=== PATIENT | male | born 1960 | race Caucasian/White ===

== ENCOUNTER 2016-06-08 17:13 | Emergency (ER) | payer BC | END 2016-06-08 21:40 | disposition home or self-care (01) | LOC: D.ER 17:13 | DX: S39.012A Strain of muscle, fascia and tendon of lower back, initial encounter (principal); X58.XXXA Exposure to other specified factors, initial encounter; Y93.89 Activity, other specified; Y92.019 Unspecified place in single-family (private) house as the place of occurrence of the external cause; I25.10 Atherosclerotic heart disease of native coronary artery without angina pectoris; I10 Essential (primary) hypertension; K21.9 Gastro-esophageal reflux disease without esophagitis; E78.00 Pure hypercholesterolemia, unspecified ==

== ENCOUNTER 2019-05-01 21:25 | Inpatient (IN) | payer BC ==
[~2019-05-01] VITALS: Ht 177.8 cm; Wt 85.5 kg
[2019-05-01] MEDS ORDERED: OMEGA-3100 MG PO (21:36)
[2019-05-01] MEDS ORDERED: CRESTOR40 MG PO (21:36)
[2019-05-01] MEDS ORDERED: ALDACTONE25 MG PO (21:37)
[2019-05-01] MEDS ORDERED: LASIX20 MG PO (21:37)
[2019-05-01] MEDS ORDERED: MAGNESIUM OXID500 MG PO (21:37)
[2019-05-01] MEDS ORDERED: DILTIAZEM 24HR240 M4 PO (21:37)
[2019-05-01] MEDS ORDERED: ISOSORBIDE MONO60 M1 PO (21:38)
[2019-05-01] MEDS ORDERED: CO Q-10100 MG PO (21:38)
[2019-05-01] MEDS ORDERED: BAYER CHEWABLE81 MG PO (21:38)
[2019-05-01] MEDS ORDERED: VALIUM10 MG PO (21:39)
[2019-05-01] MEDS ORDERED: NITROQUICK0.4 MG SL (21:39)
[2019-05-01] MEDS ORDERED: ACETAMINOPHEN500 M1 PO (21:39)
[2019-05-01 21:54] LABS: BASOPHILS 0.1 % (0-2); EOSINOPHILS 0.2 % (0-7); IMMATURE GRANULOCYTES 0.2 % (0-5); MCH 28.1 pg (26.0-34.0); MCHC 34.1 g/dL (31.0-37.0); MCV 82.6 fL (80.0-100.0); MEAN PLATELET VOLUME 9.4 fL (7.4-10.4); MONOCYTES 6.3 % (2-11); NEUTROPHILS 86.2 % (40-80); PLATELET COUNT 151 10x3/uL (130-400); RBC 5.33 10x6/uL (4.20-6.10); RDW 16.8 % (11.5-14.5); WBC 12.9 10x3/uL (4.8-10.8)
[2019-05-01 22:00] VITALS: BP 124/75
--- NOTE | 2019-05-01 22:00 | NUR ---
PT REPORTS PAIN HAS MOVED TO LOWER ABD. PT DENIES CHEST OR EPIGASTRIC PAIN AT THIS TIME.
[2019-05-01 22:09] LABS: CALC OSMOLALITY 275 mosm/kg (275-300); CALCIUM 9.1 mg/dL (8.5-10.1); CHLORIDE - SERUM 104 mmol/L (98-107); CREATININE - SERUM 1.3 mg/dL (0.6-1.3); GLUCOSE 98 mg/dL (74-106); POTASSIUM - SERUM 3.7 mmol/L (3.5-5.1); SODIUM 138 mmol/L (136-145); UREA NITROGEN 13 mg/dL (7-18); eGFR NON AFRICAN AMERICAN 60 mL/min (90-120)
[2019-05-01 22:13] LABS: ALBUMIN 3.5 g/dL (3.4-5.0); ALKALINE PHOSPHATASE 77 U/L (46-116); ALT (SGPT) 30 U/L (10-68); AMYLASE - SERUM 59 U/L (25-115); BILIRUBIN - TOTAL 0.35 mg/dL (0.2-1.3); LIPASE 114 U/L (73-393); PROTEIN - SERUM 6.8 g/dL (6.4-8.2)
[2019-05-01 22:14] LABS: TROPONIN-I < 0.017 ng/mL (0.000-0.060)
--- NOTE | 2019-05-01 22:48 | NUR ---
PT RESTING ON BED. FAMILY AT BEDSIDE.
[2019-05-01 23:00] VITALS: BP 114/63
--- NOTE | 2019-05-01 23:28 | NUR ---
PT LEFT ED VIA WC FOR CT. PT AWAKE AND ALERT. NO S/S OF ACUTE DISTRESS NOTED.
[2019-05-02] VITALS (13 sets, daily range): BP systolic 99–137; BP diastolic 62–74; Ht 177.8 cm; Wt 85.5 kg
--- NOTE | 2019-05-02 00:45 | NUR ---
PT AWAKE AND ALERT. NO S/S OF ACUTE DISTRESS NOTED.
[2019-05-02 00:48] LABS: APPEARANCE CLOUDY (CLEAR); BILIRUBIN NEGATIVE (NEGATIVE); COLOR YELLOW (YELLOW); GLUCOSE NEGATIVE (NEGATIVE); KETONE NEGATIVE (NEGATIVE); NITRITE NEGATIVE (NEGATIVE); PROTEIN 1+ mg/dL (NEGATIVE); UROBILINOGEN NORMAL (NORMAL)
[2019-05-02 00:50] LABS: AMORPHOUS SEDIMENT >1+ /lpf (NONE SEEN); BACTERIA FEW /hpf (NEGATIVE); EPITHELIAL CELLS 0-5 /hpf (0-5); RED CELLS - URINE 0-5 /hpf (0-5); WHITE CELLS - URINE 0-5 /hpf (NEGATIVE)
--- NOTE | 2019-05-02 01:30 | NUR ---
PT RESTING COMFORTABLY AT THIS TIME.
[2019-05-02] MEDS ORDERED: VALIUM10 MG PO (02:29)
--- NOTE | 2019-05-02 03:02 | NUR ---
RCVD VIA WHEEL CHAIR WITH HOSPITAL STAFF AT SIDE. ALERT AND ORIENTED TIMES 4. ABLE TO VOICE ALL NEEDS. SLIGHT DISCOMFORT TO LRQ AT REST AND PALPATION. NO S/S OF ANY ACUTE DISTRESS. VSS. IV TO LEFT AC IS INFUSING VIA PUMP PER ORDERS. SKIN IS WDI. OLD SURGICAL SCARS TO LLQ LRQ MIDCHEST. DRESSING TO INNER RIGHT WRIST FROM HEART CATH ON 04/30/19 AT [facility]. WILL NOTE ANY CHANGE.
--- NOTE | 2019-05-02 09:18 | NUR ---
PT RESTING IN BED RESP EVEN AND UNLABORED. REPORTS PAIN 6/10 AT THIS TIME. EDUCATED PT REGARDING NEXT DOSE DUE FOR PAIN MEDICATION. PT VOICES UNDERSTANDING. PT NPO FOR UPCOMING SURGERY. IV TO LEFT AC WITH NS @ 100ML/HR INFUSING VIA PUMP. SITE WITHOUT REDNESS OR EDEMA. DENIES FURTHER NEEDS AT THIS TIME. CL WITHIN REACH. ENCOURAGED TO CALL WITH NEEDS. CONTINUE POC
[2019-05-03] VITALS: BP 126/71
[2019-05-03 04:00] VITALS: BP 99/64
[2019-05-03 04:54] LABS: BASOPHILS 0.1 % (0-2); EOSINOPHILS 0.1 % (0-7); HEMATOCRIT 46.1 % (42.0-54.0); HEMOGLOBIN 15.4 g/dL (13.5-17.5); IMMATURE GRANULOCYTES 0.3 % (0-5); LYMPHOCYTES 10.4 % (15-50); MCH 27.6 pg (26.0-34.0); MCHC 33.4 g/dL (31.0-37.0); MCV 82.8 fL (80.0-100.0); MEAN PLATELET VOLUME 10.1 fL (7.4-10.4); MONOCYTES 8.6 % (2-11); NEUTROPHILS 80.5 % (40-80); PLATELET COUNT 121 10x3/uL (130-400); RBC 5.57 10x6/uL (4.20-6.10); RDW 16.6 % (11.5-14.5); WBC 11.7 10x3/uL (4.8-10.8)
[2019-05-03 05:17] LABS: CALC OSMOLALITY 269 mosm/kg (275-300); CALCIUM 9.1 mg/dL (8.5-10.1); CARBON DIOXIDE 21.5 mmol/L (21.0-32.0); CHLORIDE - SERUM 104 mmol/L (98-107); GLUCOSE 81 mg/dL (74-106); POTASSIUM - SERUM 3.8 mmol/L (3.5-5.1); SODIUM 136 mmol/L (136-145); UREA NITROGEN 10 mg/dL (7-18); eGFR NON AFRICAN AMERICAN 82 mL/min (90-120)
--- NOTE | 2019-05-03 07:55 | NUR ---
I have reviewed this patient and I concur with the Shift Assessment completed by the Licensed Practical Nurse today this shift.
[2019-05-03] MEDS ORDERED: HYDROCODON-ACE1 EA10 PO (09:31)
[2019-05-03] MEDS ORDERED: VIBRAMYCIN50 MG PO (09:32)
--- NOTE | 2019-05-03 09:33 | OP ---
PATIENT NAME: KEYA AUSTIN MEDICAL RECORD: [id number] :62 LOCATION:D.[facility] [id number] ADMISSION DATE:05/02/19 SURGEON: JASWINDER SIMENTAL MD DATE OF OPERATION: 05/02/2019 PREOPERATIVE DIAGNOSES: 1. Acute appendicitis with localized peritonitis. 2. Coronary artery disease. POSTOPERATIVE DIAGNOSES: 1. Acute appendicitis with localized peritonitis. 2. Coronary artery disease. PROCEDURE: Laparoscopic appendectomy. SURGEON: Jaswinder Simental MD REPORT OF PROCEDURE: The patient's abdomen was prepped and draped in sterile fashion. A cutdown was made on the superior aspect of the umbilicus, 0 Vicryls were placed in the fascia bilaterally and the fascia was incised with a 15-blade. I then bluntly entered the peritoneal cavity and placed a 12-mm Enmanuel port. Under direct visualization, a 5-mm trocar was placed in the left lower quadrant and another was placed in the suprapubic region. In the right lower quadrant, we can see some inflammatory changes present. Using Harmonic scalpel, we took down some adhesions of the cecum to the anterior abdominal wall. Once we did this, we could see the appendix and could see that there was some murky appearing fluid and the appendix was significantly inflamed and appeared to have a small perforation. Upon grasping it, there was spillage of some contents out of the appendix and this was suctioned up quickly. The distal ileum was adherent to the side wall of the patient's right pelvis. We took down some of these adhesions to allow mobilization of this, we could better see the appendix. We eventually were able to dissect out the mesoappendix and this was transected with Harmonic scalpel. The base of the appendix was then cleared off near the cecum and we transected this using a 45 blue load Endo-TOMMIE stapler. The appendix was placed into an EndoCatch bag. We irrigated out the right lower quadrant and pelvis for quite a while until we had a good clear return of fluid. At this point, the ports and insufflation were then removed. The appendix was taken out through the umbilicus. The umbilical fascia was closed with interrupted 0 Vicryls times 3. The wounds were then irrigated out with normal saline and infused with 10 mL of 0.25% Marcaine with epinephrine. The skin incisions were all closed with subcutaneous 5-0 Monocryl and dressed appropriately. COMPLICATIONS: None. CONDITION: Stable. ANESTHESIA: General endotracheal and local. BLOOD LOSS: Minimal. TRANSINT:[id number] Voice Confirmation ID: [id number] DOCUMENT ID: [id number] OPERATIVE REPORT [id number] KEYA AUSTIN CHRISTIAN MD at 0933 CC: [id number] DICTATION DATE: 05/02/19 1127 KEYMODULE ASSEMBLY SUPERVISOR: 05/02/19 1322 ADM IN [place] [address] [place] [address]
--- NOTE | 2019-05-03 11:16 | NUR ---
PT IV D/C'D FROM LEFT AC, CATH INTACT. DISCHARGE INSTRUCTIONS PROVIDED WITH PRESCRIPTIONS. PT TAKEN OUT VIA W/C TO PRIVATE VEHICLE.
--- NOTE | 2019-05-04 13:33 | MORECARE ---
CASE MANAGEMENT DISCHARGE SUMMARY PATIENT: KEYA AUSTIN MOLLY UNIT: [id number] ADM DATE: 05/02/19 AGE: 58 : 62 SEX: M ROOM/BED: D.2233 AUTHOR: NOLAN HERNANDEZ PHYSICIAN: REFERRING PHYSICIAN: AGUSTO SIMENTAL MD DATE OF SERVICE: 05/04/19 Discharge Plan Patient Name: KEYA AUSTIN [facility] [facility] 1960 Planned Disposition: Anticipated Discharge Date: Discharge Date: 05/03/2019 Expected LOS: 0 Initial Reviewer: [email or web address] Initial Review Date: 05/04/2019 Generated: 05/04/19 2:33 pm Patient Name: KEYA AUSTIN Page [id number] at 1333 All edits/amendments must be made on the electronic document DICTATION DATE: 05/04/19 1333 IMMIGRATION PATROL INSPECTOR: CHERYL 05/04/19 1333 RPT#: [id number] DC DATE:05/03/19 STATUS: DIS IN [facility] [address] [facility] [place] [address] END OF REPORT
== END 2019-05-03 11:30 | disposition home or self-care (01) | DRG 343 ==
LOC: D.ER 21:25 → D.MS 05-02 01:20
PROVIDERS: Family Medicine; ADMIT Surgery; ATTEND Surgery
PROC: 0DTJ4ZZ Resection of Appendix, Percutaneous Endoscopic Approach (ICD-10-PCS; principal; 2019-05-02 10:00)
DX: K35.30 Acute appendicitis with localized peritonitis, without perforation or gangrene (principal); I25.10 Atherosclerotic heart disease of native coronary artery without angina pectoris; E78.5 Hyperlipidemia, unspecified

== ENCOUNTER 2019-05-04 21:15 | Inpatient (IN) | payer BC, MEDICARE ==
[~2019-05-04] VITALS: Ht 177.8 cm; Wt 85.5 kg
[~2019-05-04 21:15] MED LIST: ACETAMINOPHEN500 M1 PO; ALDACTONE25 MG PO; BAYER CHEWABLE81 MG PO; CO Q-10100 MG PO; CRESTOR40 MG PO; DILTIAZEM 24HR240 M4 PO; HYDROCODON-ACE1 EA10 PO; ISOSORBIDE MONO60 M1 PO; LASIX20 MG PO; MAGNESIUM OXID500 MG PO; NITROQUICK0.4 MG SL; OMEGA-3100 MG PO; VALIUM10 MG PO; VIBRAMYCIN50 MG PO
[2019-05-04 22:00] LABS: BASOPHILS 0.1 % (0-2); EOSINOPHILS 1.8 % (0-7); HEMATOCRIT 43.4 % (42.0-54.0); HEMOGLOBIN 14.6 g/dL (13.5-17.5); IMMATURE GRANULOCYTES 0.3 % (0-5); LYMPHOCYTES 10.4 % (15-50); MCH 27.7 pg (26.0-34.0); MCHC 33.6 g/dL (31.0-37.0); MCV 82.4 fL (80.0-100.0); MEAN PLATELET VOLUME 9.6 fL (7.4-10.4); MONOCYTES 10.2 % (2-11); NEUTROPHILS 77.2 % (40-80); PLATELET COUNT 143 10x3/uL (130-400); RBC 5.27 10x6/uL (4.20-6.10); RDW 16.1 % (11.5-14.5)
[2019-05-04 22:07] LABS: CALC OSMOLALITY 269 mosm/kg (275-300); CALCIUM 9.3 mg/dL (8.5-10.1); CARBON DIOXIDE 24.7 mmol/L (21.0-32.0); CHLORIDE - SERUM 100 mmol/L (98-107); CREATININE - SERUM 1.1 mg/dL (0.6-1.3); GLUCOSE 84 mg/dL (74-106); POTASSIUM - SERUM 3.4 mmol/L (3.5-5.1); SODIUM 135 mmol/L (136-145); eGFR NON AFRICAN AMERICAN 73 mL/min (90-120)
[2019-05-04 22:11] LABS: UREA NITROGEN 16 mg/dL (7-18)
[2019-05-04 22:16] LABS: ALBUMIN 3.1 g/dL (3.4-5.0); ALKALINE PHOSPHATASE 60 U/L (46-116); ALT (SGPT) 18 U/L (10-68); AMYLASE - SERUM 31 U/L (25-115); LIPASE 52 U/L (73-393); PROTEIN - SERUM 7.2 g/dL (6.4-8.2)
[2019-05-04 22:20] LABS: TROPONIN-I < 0.017 ng/mL (0.000-0.060)
[2019-05-04 23:32] LABS: APPEARANCE CLEAR (CLEAR); BILIRUBIN NEGATIVE (NEGATIVE); COLOR YELLOW (YELLOW); GLUCOSE NEGATIVE (NEGATIVE); KETONE SMALL mg/dL (NEGATIVE); NITRITE NEGATIVE (NEGATIVE); PROTEIN NEGATIVE (NEGATIVE); UROBILINOGEN NORMAL (NORMAL)
[2019-05-05 04:00] VITALS: BP 110/73
[2019-05-05 04:21] VITALS: BP 110/73; BMI 27.0
--- NOTE | 2019-05-05 04:38 | NUR ---
ARRIVED TO ROOM 2224 VIA STRETCHER AND ER STAFF. ALERT AND ORIENTED TIMES 3. ABLE TO VOICE ALL NEEDS. PAIN NOTED TO ABD. STATES TYLENOL WILL DO HIM NO GOOD. NO OTHER PAIN MEDS ORDERED AT THIS TIME. BOWEL SOUNDS ARE ACTIVE AND HE STATES IT FEELS LIKE IT IS MOVING ALL OVER THE PLACE INSIDE. UP AD CORY, NON SKID SOCKS PLACED FOR AMBULATION. IV TO LEFT AC IS PATENT WITH FLUIDS INFUSING VIA PUMP PER ORDERS. WILL NOTE ANY CHANGE.
--- NOTE | 2019-05-05 06:53 | NUR ---
COMPLAINTS OF PAIN, DOES NOT WANT TYLENOL, AFRAID HE WILL THROW IT UP, REPORTED OFF TO ONCOMING SHIFT. WILL NOTE CHANGE.
[2019-05-05 08:36] VITALS: BP 110/68
--- NOTE | 2019-05-05 09:35 | NUR ---
PT LYING IN BED STATING THAT HE IS CRAMPING AND HURTING THE SAME HE WAS LAST NIGHT WHEN HE CAME IN AND IS FRUSTRAED THAT NO ONE HAS COME TO SEE HIM WITH A PLAN OF ACTION. TOLD PT I WILL GET HIM SOMETHIG FOR NAUSEA AND PAGE DOCTOR FOR ANSWERS
--- NOTE | 2019-05-05 09:47 | NUR ---
RECEIVED CALL BACK FROM DR SPIVEY STATED HE WILL BE IN TO SEE PT AFTER HE GETS OUT OF SURGERY. RELAYED MESSAGE TO PT
--- NOTE | 2019-05-05 10:36 | NUR ---
I have reviewed this patient and I concur with the Shift Assessment completed by the Licensed Practical Nurse today this shift.
[2019-05-05 13:31] VITALS: BP 102/64
--- NOTE | 2019-05-05 14:59 | NUR ---
PT LYING IN BED WITH FAMILY AND FRIENDS AT BEDSIDE, PT STATES PAIN IS MORE CONTROLLED, NO NEEDS VOICED, CONTINUE WITH PLAN OF CARE
[2019-05-05 16:42] VITALS: BP 114/71
--- NOTE | 2019-05-05 17:09 | NUR ---
ORDERS TO DC PT DATA ANALYTICS CHIEF SCIENTIST PUMP, PT STATED HOPES TO BE DC TODAY AFTER SEEN BY VI PT HAS PRN PAIN MEDICATION PO IF NEEDED, STATED HE HAS NOT GOTTEN SICK AND HAS BARELY USED PUMP. NO OTHER NEEDS AT THIS TIME CONTINUE WITH PLAN OF CARE
[2019-05-06 13:43] VITALS: Ht 177.8 cm; Wt 85.5 kg
--- NOTE | 2019-05-07 09:23 | DS ---
PATIENT:KEYA AUSTIN MOLLY :62 MEDICAL RECORD: [id number] DISCHARGE SUMMARY ADMISSION DATE: 05/05/19 DISCHARGE DATE: 05/05/19 PRINCIPAL DIAGNOSES: 1. Postoperative ileus. 2. Recent laparoscopic cholecystectomy. 3. History of coronary artery disease. 4. History of myocardial infarction. 5. History of congestive heart failure. 6. History of benign prostatic hypertrophy. 7. History of obstructive sleep apnea, on CPAP. 8. History of anxiety and depression. 9. History of hernia repairs times 2. HOSPITAL COURSE: The patient was admitted through the Emergency Room with a postoperative ileus. The ileus resolved. He was tolerating a regular diet and had a return of bowel function. He was dismissed home. He is to follow up with Dr. Miller in his office. TRANSINT:[id number] Voice Confirmation ID: [id number] DOCUMENT ID: [id number] DARRELL SPIVEY MD at 0923 CC: [id number] DICTATION DATE: 05/06/19 1344 MAIL SORTING SUPERVISOR: 05/06/190 DIS IN 05/05/19 [facility] [address] [place] [address]
== END 2019-05-05 18:29 | disposition home or self-care (01) | DRG 389 ==
LOC: D.ER 21:15 → OBSVTIME 05-05 03:34 → D.MS 05-05 03:34
PROVIDERS: Family Medicine; ADMIT Surgery; ATTEND Surgery
DX: K56.7 Ileus, unspecified (principal); E87.1 Hypo-osmolality and hyponatremia; I25.10 Atherosclerotic heart disease of native coronary artery without angina pectoris; I25.2 Old myocardial infarction; I10 Essential (primary) hypertension; G47.33 Obstructive sleep apnea (adult) (pediatric); F41.8 Other specified anxiety disorders; E87.6 Hypokalemia; I95.9 Hypotension, unspecified